=== PATIENT | female | born 1955 | race African-American/Black ===

== ENCOUNTER 2021-10-02 15:10 | Emergency (ER) | payer MEDICARE ==
[~2021-10-02] VITALS: Ht 160 cm; Wt 131.5 kg
--- NOTE | ~2021-10-02 | EMS ---
[place] [address] EMS Patient Care Report Name: POWER ELLIS Room #: REG Mikal#: [id number] Admission: 10/02/21 Attend Phys: Discharge: Date of : 53 Report #: [id number] THIS REPORT FOR: //name// Report Transmitted: 10/02/2021 16:16 EMS Care Summary [place], [place]/[facility] Incident [id number] @ 10/02/2021 14:22 Incident Location [address] [place], [place] [id number] Patient DEN ELLIS Female, 66 Years 1955 Patient Address [address] [place] [address] Patient History Hypertension (HTN),Kidney/Renal Failure, Patient Allergies Penicillin allergy,Oxycodone, Patient Medications None Reported, Chief Complaint nausea/vomiting due to no dialysis. Disposition Transported No Lights/[place] Reason Sick Person Transported To [facility] Narrative medic 42 arrived on scene to at a [place] [facility] to find a 70 year old female complaining of nausea and vomiting. The nurse said patients dialysis labs were in-correct and she could not receive dialysis. We transferred the patient onto the stretcher, put the seatbelts on the patient, [place] [address] EMS Patient Care Report Name: POWER ELLIS Room #: [facility] Mikal#: [id number] Admission: 10/02/21 Attend Phys: Discharge: Date of : 53 Report #: [id number] ambulance. While in ambulance we assessed vitals. We then drove to the hospital where care was transferred to the nurse. Initial Vitals @14:52P: 86,R: 14,BP: 168/95,Pain: 2/10,GCS: 15,CO: 1,SpO2: 99,Revised Trauma: 12, @14:50P: 89,R: 14,BP: 171/82,Pain: 2/10,GCS: 15,SpO2: 99,Revised Trauma: 12, Assessments @14:33MENTAL:No Abnormalities,SKIN:HEENT:Head/Face: No Abnormalities,Eyes: No Abnormalities,Neck/Airway: No Abnormalities,LUNG SOUNDS:General: Vomiting,Left Upper: No Abnormalities,Right Upper: No Abnormalities,Left Lower: No Abnormalities,Right Lower: No Abnormalities,ABDOMEN:General: Vomiting,Left Upper: No Abnormalities,Right Upper: No Abnormalities,Left Lower: No Abnormalities,Right Lower: No Abnormalities,PELVIS//GI:No Abnormalities,EXTREMITIES:Left Arm: No Abnormalities,Right Arm: No Abnormalities,Left Leg: No Abnormalities,Right Leg: No Abnormalities,PULSE:Radial: 2+ Normal,NEURO:No Abnormalities,@14:25MENTAL:No Abnormalities,SKIN:No Abnormalities,HEENT:Head/Face: No Abnormalities,Eyes: No Abnormalities,Neck/Airway: No Abnormalities,LUNG SOUNDS:General: Vomiting,Left Upper: No Abnormalities,Right Upper: No Abnormalities,Left Lower: No Abnormalities,Right Lower: No Abnormalities,ABDOMEN:General: Vomiting,Left Upper: No Abnormalities,Right Upper: No Abnormalities,Left Lower: No Abnormalities,Right Lower: No Abnormalities,PELVIS//GI:No Abnormalities,EXTREMITIES:Left Arm: No Abnormalities,Right Arm: No Abnormalities,Left Leg: No Abnormalities,Right Leg: No Abnormalities,PULSE:Radial: 2+ Normal,NEURO:No Abnormalities, Impression Nausea Procedures @14:45 ALS Assessment Response: UnchangedSucceeded Timeline 14:,Call Received 14:,Dispatch Notified :,Dispatched 14:,En Route 14:24,On Scene 14:25,At Patient 14:35,Depart Scene 14:45,ALS Assessment,Response: UnchangedSucceeded, :45,At Destination 14:50,BP: 171/82 M,PULSE: 89,RR: 14 R,SPO2: 99 Ox,ETCO2: ,BG: ,PAIN: 2,GCS: 15, [address] [address] EMS Patient Care Report Name: POWER ELLIS Room #: [facility]#: [id number] Admission: 10/02/21 Attend Phys: Discharge: Date of : 53 Report #: [id number] 14:52,BP: 168/95 M,PULSE: 86,RR: 14 R,SPO2: 99 Ox,ETCO2: ,BG: ,PAIN: 2,GCS: 15, 14:55,Call Closed Disclaimer v1.1 Copyright 2021 [employer] This EMS Care Summary contains data elements from the applicable legal record (which may be displayed differently). It is designed to provide pertinent information for the following purposes: continuity of care, clinical quality, and state data reporting. The complete legal record is available to ED staff and administrators of the receiving hospital in [facility]. All data is provided "as is."
[2021-10-02 17:27] LABS: CALCIUM 8.5 mg/dL (8.5-10.1); CREATININE 8.6 mg/dL (0.6-1.0); POTASSIUM 5.8 mmol/L (3.5-5.1)
[2021-10-02 18:17] LABS: ABSOLUTE NEUTROPHILS 10.2 thou/uL (1.4-8.2); BASOPHILS 0.5 % (0.0-2.0); HEMATOCRIT 23.6 % (37.0-47.0); HEMOGLOBIN 7.4 gm/dL (12.0-15.0); LYMPHOCYTES 5.4 % (24.0-44.0); MCH 30.5 pg (26.0-34.0); MCHC 31.3 g/dL (28.0-37.0); MCV 97.2 fL (80.0-100.0); MONOCYTES 4.3 % (1.0-8.0); PLATELET COUNT 269 thou/uL (150-400); POLYS 89.8 % (36.0-66.0); RBC 2.43 mil/uL (4.20-5.00); RDW 15.6 % (10.5-14.5); WBC 11.4 thou/uL (4.0-11.0)
[2021-10-02 22:37] VITALS: BP 169/71
== END 2021-10-02 22:38 | disposition home or self-care (01) ==
LOC: ER 15:10
PROVIDERS: Emergency Medicine
DX: E11.22 Type 2 diabetes mellitus with diabetic chronic kidney disease (principal); I12.0 Hypertensive chronic kidney disease with stage 5 chronic kidney disease or end stage renal disease; N18.6 End stage renal disease; Z99.2 Dependence on renal dialysis; Z86.2 Personal history of diseases of the blood and blood-forming organs and certain disorders involving the immune mechanism